=== PATIENT | female | born 1970 | race Caucasian/White ===

== ENCOUNTER 2025-04-20 12:34 | Emergency (ER) | payer BC, OTHER, SELFPAY ==
[2025-04-20 12:37] VITALS: BP 128/93
[2025-04-20 13:00] VITALS: BMI 34.9
[2025-04-20 13:08] VITALS: BP 112/86
[2025-04-20] MEDS: NSS 1000 IV (13:11)
[2025-04-20] MEDS: TORADOL 15 MG IV (13:12)
[2025-04-20 13:26] LABS: Hematocrit 39.0 % (37.0-47.0); Hemoglobin 12.7 g/dL (12.0-16.0); Mean Corp Hgb Conc. 32.6 g/dL (33.0-37.0); Mean Corpuscular Volume 94.9 fL (81.0-99.0); Nucleated Red Blood Cells % 0 %; Platelet Count 254 10^3/uL (130-400); Red Cell Dist. Width 12.2 % (11.5-14.5); Urine Character Clear (Clear)
[2025-04-20 13:34] LABS: Urine Squamous Cell 16-20 /LPF (Few); Urine Urothelial Cell 0-2 /LPF (FEW)
[2025-04-20 13:35] LABS: Urine Red Blood Cell 0-2 /HPF (0-2)
[2025-04-20 13:42] LABS: ALT (SGPT) 19 U/L (0-35); AST (SGOT) 21 U/L (14-36); Albumin 4.5 g/dl (3.5-5.0); Alkaline Phosphatase 64 U/L (38-126); Blood Urea Nitrogen 12 mg/dl (7-17); Calcium 10.2 mg/dl (8.4-10.2); Carbon Dioxide 27 mmol/L (22-30); Chloride 107 mmol/L (98-107); Estimated Creatinine Clearance 98 ml/min; Glucose 99 mg/dl (70-99); Lipase 62 U/L (23-300); Potassium 4.3 mmol/L (3.5-5.1); Sodium 140 mmol/L (135-145); Total Protein 7.0 g/dl (6.3-8.2); eGFR > 60.00
[2025-04-20 15:23] VITALS: BP 113/75
--- NOTE | 2025-04-20 15:34 | ED.GENMED ---
History of Present Illness
General
Chief Complaint: Abdominal Pain
Source: patient
Exam Limitations: none
Time Seen by Provider: 04/20/25 12:45
Nursing documentation reviewed up to this point in time: agreed with
History of Present Illness
History of Present Illness:
54-year-old female with history diverticulitis who presents to the emergency department today for evaluation of abdominal pain. She reports approximately 2 weeks of a dull intermittent pain in her left lower quadrant/suprapubic region reminiscent
of her prior flares of diverticulitis. Symptoms seemed to acutely worsen over this past weekend including fevers, vomiting, worsening pain in her lower abdomen. She did start taking Levaquin daily and Flagyl 3 times daily on Saturday evening as she
had an old prescription from previous flares. She has been taking these antibiotics for the past 4 days. In addition, she has followed a clear with diet over the past few days with slow advancement to low fiber.
Patient does have a past history of diverticulitis and follows with GI doctors at [facility]. She contacted them today who recommended evaluation in the emergency department for CT scan. She apparently had an acute flare last year with a contained
microperforation.
She does state that her symptoms have improved somewhat since this weekend.
Review of Systems
Review of Systems
Allergies reviewed?: Yes
All Other Systems: ROS reviewed and negative except as documented in HPI and ROS
Phy Exam
Physical Exam
Physical Exam:
Vitals: Mildly hypertensive, otherwise vital signs stable. Afebrile
General: Patient is very well appearing, no acute distress. Nontoxic-appearing
Skin: Warm and dry, no rashes or lesions
Head: Normocephalic, atraumatic
Eyes: Sclera nonicteric.
Throat: Protecting airway
Neck: Normal ROM, no cervical spine tenderness, no meningismus
Cardiac: Regular rate and rhythm, no murmurs.
Pulm: Normal respiratory effort, no wheezes, rales, rhonchi heard on exam
Abdomen: Abdomen soft. Mild tenderness in suprapubic/left lower quadrant. No rebound tenderness or guarding.
Extremities: No evidence of cyanosis or edema. 2+ DP pulses bilaterally
Neuro: AAOx3. Grossly intact.
Psychiatric: Normal affect.
Course
Orders/Labs/Results
Orders:
Orders
04/20/25 13:06
0.9% Sodium Chloride 1000 ml [Nss] 1,000 ml IV BOLUS
Ketorolac [Toradol] 15 mg IV NOW STA
04/20/25 13:07
CT Abd/pelvis W Iv Cont Urgent
Comment: hx diverticulitis
Reason For Exam: LLQ pain, fever/vomiting
04/20/25 13:11
Complete Blood Count/With Diff Urgent
Comprehensive Metabolic Panel Urgent
Lipase Urgent
Urinalysis Reflex To Culture Urgent
Date Specimen was Collected: 04/20/25
Time Specimen was Collected: 13:09
Urine Microscopic Reflex Cult Urgent
Urine Culture Urgent
SHAQ Source: U
Specimen Description:
Date Specimen was Collected: 04/20/25
Time Specimen was Collected: 13:09
Abnormal Lab Results
04/20/25
13:11
WBC 4.7 L 10^3/uL
(4.8-10.8)
RBC 4.11 L 10^6/uL
(4.20-5.40)
MCHC 32.6 L g/dL
(33.0-37.0)
Leukocyte Esterase Rfl 1+ A
(Negative)
Urine Bacteria (Reflex) Few A
(Negative)
04/20/25 13:11
04/20/25 13:11
Vital Signs
Initial and Last Documented VS:
Initial Vital Signs
Temp Pulse Resp BP Pulse Ox
98.2 F 71 16 128/93 97
04/20/25 12:37 04/20/25 12:37 04/20/25 12:37 04/20/25 12:37 04/20/25 12:37
Last Documented Vital Signs
Temp Pulse Resp BP Pulse Ox
98.2 F 70 17 113/75 97
04/20/25 12:37 04/20/25 15:23 04/20/25 15:23 04/20/25 15:23 04/20/25 15:40
MDM/Problems Addressed
Differential Diagnosis Includes:
Not limited to: Acute diverticulitis, complicated diverticulitis including microperforation, abscess, UTI, constipation, renal colic, etc.
MDM/Problems Addressed:
54-year-old female with hx diverticulitis presenting with approximately two weeks of lower abdominal pain worsening this weekend and associated with fever, vomiting. She has taken four days of Levaquin/Flagyl. History of diverticulitis with
contained microperforation.
On arrival � patient has stable vital signs and are afebrile here. She is very well appearing and nontoxic. Abdomen soft with mild tenderness in suprapubic/left lower quadrant. No rebound tenderness or guarding. Cardio/pulmonary assessment
unremarkable.
Will obtain labs, UA, CT scan abdomen/pelvis for further evaluation. Will give fluids and Toradol.
Update: labs unremarkable. No leukocytosis. Chemistry ok. Urine does not appear infected. CT scan reveals evidence of uncomplicated acute diverticulitis of sigmoid colon. Given she is afebrile with no leukocytosis, and pain well mannaged - do not
feel admission indicated. Patient has only taken four days of antibiotic therapy and her symptoms have improved over these past four days � would not consider this treatment failure. Will discharge w/ continued course of Levaquin/flagyl and her f/u
with her GI doctor. Strict return precautions discussed. Patient and patient�s verbalized understanding and are comfortable with plan.
Chronic conditions affecting care:
History of diverticulitis
Acute Exacerbation and/or Progression of Chronic Illness:
Acute diverticulitis
*Radiology
Radiology exam reviewed: radiology read reviewed
*Pulse Oximetry
SaO2: 97
Oxygen Mode of Delivery: Room air
Patient hypoxic: no
*EKG
Interpreted by ED Provider?: NA
*Mine Shifter Interpretation
Rate: Mine Shifter- N/A
*Critical Care Note
Total Time (30-74mins, 75-104mins- exclusive of procedures): Not Applicable
ED Attending Note
-
Portions of this chart may have been created with voice recognition software.� Occasional wrong word or��sound alike� substitutions may have occurred due to the inherent limitations of voice recognition software.
Discharge Plan
Departure
Patient Disposition: Home (Routine Discharge)
Date of Disposition: 04/20/25
Time of Disposition: 16:05
Patient with high blood pressure during this ER visit?: Yes
Condition: Good
Discharge Problem:
Acute diverticulitis
Instructions: Clear Liquid Diet, Diverticulitis (DC), BLOOD PRESSURE
Prescriptions:
New
levofloxacin 750 mg tablet
750 mg PO DAILY 10 Days Qty: 10 0RF
metronidazole 500 mg tablet
500 mg PO TID 10 Days Qty: 30 0RF
Referrals:
UNKNOWN - PT DOES,NOT KNOW [Family Provider]
Activity Restrictions/Additional Instructions:
RETURN TO THE EMERGENCY DEPARTMENT ANY FEVER, CHILLS, PERSISTENT OR WORSENING ABDOMINAL PAIN, INTRACTABLE VOMITING, SIGNS OF SEVERE DEHYDRATION, WORSENING IN CURRENT SYMPTOMS, OR ANY OTHER CONCERNS
- As discussed�your CT scan showed evidence of uncomplicated acute diverticulitis of your sigmoid colon.
- A prescription for antibiotics have not sent to your pharmacy. Please take the Levaquin once daily and the Flagyl 3 times daily. You should not drink any alcohol while taking the Flagyl.
- Continue to take Tylenol as needed for pain. It is important stay well-hydrated. I would recommend a clear liquid diet and slowly advance to low fiber as tolerated.
- Follow-up with your GI doctor for further evaluation/management to ensure that your symptoms are improving
Monitor your symptoms closely return to the emergency department with any acute worsening/new symptoms or any other concerns
Interventions
Interventions:
*Risk Screen - Suicide Last Done: 04/20/25 12:37
*General Assessment Last Done: 04/20/25 12:37
*ED COVID-19 Vaccine History Last Done: 04/20/25 12:37
*ED Influenza Vaccine History Last Done: 04/20/25 12:37
*Nursing Disposition Last Done: 04/20/25 16:21
[facility]-Rlj[facility]-Ykshioeltj Assessment Last Done: 04/20/25 15:20
Discharge Date and Time
Discharge Date/Time: 04/20/25 16:21
Print Language: BULGARIAN
== END 2025-04-20 16:21 | disposition home or self-care (01) ==
LOC: EMR 12:34
PROVIDERS: Physician Assistant; EMERGENCY PHYSICIAN Student in an Organized Health Care Education/Training Program
DX: K57.32 Diverticulitis of large intestine without perforation or abscess without bleeding (principal)
CPT/HCPCS: 99284; 96374; 96361; 74177; 80053; 81003; 81015; 83690; 85025; 87086; Q9967